=== PATIENT | female | born 1975 | race American Indian/Alaskan Native ===

== ENCOUNTER 2016-09-04 08:34 | Emergency (ER) | payer OTHER ==
[2016-09-04 08:39] VITALS: BMI 25.9
[2016-09-04 08:42] VITALS: BP 125/81; PULSE 85; RESP 19; TEMP 97.7
--- NOTE | 2016-09-04 09:31 | ED PDOC ---
HPI: Abdomen Time Seen by Provider: 09/04/16 09:09 Chief Complaint (Nursing): Abdominal Pain Chief Complaint (Provider): Abdominal Pain History Per: Patient History/Exam Limitations: no limitations Onset/Duration Of Symptoms: Days Current Symptoms Are (Timing): Still Present Severity: Mild Location Of Pain/Discomfort: Suprapubic Quality Of Discomfort: "Pain" Associated Symptoms: denies: Nausea, Vomiting, Diarrhea, Loss Of Appetite Exacerbating Factors: None Alleviating Factors: None Additional Complaint(s): Patient is a 41 year old female who presents to ED for right pelvic pain that began yesterday. Patient states pain was initially resolved with passing gas but noticed pain again upon waking this morning. Denies nausea, vomiting, diarrhea, fever or chills. Denies vaginal changes, vaginal discharge, vaginal bleeding, back pain or constipation . Abnormal Vaginal Bleeding: No Past Medical History Reviewed: Historical Data, Nursing Documentation, Vital Signs Vital Signs: Last Vital Signs Temp 97.7 F 09/04/16 08:39 Pulse 85 09/04/16 08:39 Resp 19 09/04/16 08:39 BP 125/81 09/04/16 08:39 Pulse Ox - Medical History PMH: Anxiety (pt states this does not feel like anxiety/panic) - Surgical History Surgical History: No Surg Hx - Family History Family History: States: No Known Family Hx, Unknown Family Hx - Living Arrangements Living Arrangements: With Family - Home Medications Home Medications: Ambulatory Orders Medication Instructions Recorded Naproxen [Naprosyn] 500 mg PO BID PRN #15 tablet 09/04/16 - Allergies Allergies/Adverse Reactions: Allergies Allergy/AdvReac Type Severity Reaction Status Date / Time No Known Allergies Allergy Verified 09/04/16 08:51 Review of Systems ROS Statement: Except As Marked, All Systems Reviewed And Found Negative Constitutional: Negative for: Fever, Chills Cardiovascular: Negative for: Chest Pain Respiratory: Negative for: Shortness of Breath Gastrointestinal: Negative for: Nausea, Vomiting, Abdominal Pain, Diarrhea Genitourinary Female: Positive for: Pelvic Pain. Negative for: Dysuria, Hematuria, Vaginal Discharge, Vaginal Bleeding Musculoskeletal: Negative for: Back Pain Physical Exam - Reviewed Nursing Documentation Reviewed: Yes Vital Signs Reviewed: Yes - Physical Exam Appears: Positive for: Non-toxic, No Acute Distress Skin: Positive for: Normal Color, Warm Eye Exam: Positive for: Normal appearance Neck: Positive for: Normal, Painless ROM Cardiovascular/Chest: Positive for: Regular Rate, Rhythm. Negative for: Murmur Respiratory: Positive for: Normal Breath Sounds. Negative for: Respiratory Distress Gastrointestinal/Abdominal: Positive for: Bowel Sounds, Soft, Tenderness (mild right lower suprapubic (-) mcburney point tenderness). Negative for: Distended , Guarding, Rebound Back: Positive for: Normal Inspection. Negative for: L CVA Tenderness, R CVA Tenderness Extremity: Positive for: Normal ROM Neurologic/Psych: Positive for: Alert, Oriented - Laboratory Results Result Diagrams: 09/04/16 10:08 09/04/16 10:08 - ECG Pulse Ox Interpretation: Normal - CT Scan/US Pelvic ultrasound Other Rad Studies (CT/US): Radiology Report Reviewed (Small amount of fluid seen adjacent to the left adnexa may be due to recent rupture of adnexal cyst. Otherwise grossly unremarkable ultrasound examination of the pelvis.) - Progress ED Course And Treament: On reexamination, pt without abdominal tenderness, feels better. Medical Decision Making Medical Decision Making: Time: 909 Initial impression: R/O ovarian pathology Initial plan: -- CMP -- Urine preg -- Urine dip -- CBC -- U/A -- U/S Scribe Attestation: Documented by Rosemary Villagomez acting as a scribe for Kenya Jaffe MD MD Scribe Attestation: All medical record entries made by the Scribe were at my direction and personally dictated by me. I have reviewed the chart and agree that the record accurately reflects my personal performance of the history, physical exam, medical decision making, and the department course for this patient. I have also personally directed, reviewed, and agree with the discharge instructions and disposition. Disposition - Clinical Impression Clinical Impression: Suprapubic pain - Patient ED Disposition Is Patient to be Admitted: No - Disposition Referrals: [facility] [Outside] Disposition: Routine/Home Disposition Time: 12:31 Condition: IMPROVED Prescriptions: Naproxen [Naprosyn] 500 mg PO BID PRN #15 tablet PRN Reason: Pain, Moderate (4-7) Instructions: Pelvic Pain in Women (ED) Forms: [facility] ED School/Work Excuse
[2016-09-04] MEDS: Sodium Chloride 0.9% 1,000 ML IV STA (09:57)
[2016-09-04 10:20] LABS: BASO % 0.5 % (0.0-2.0); EOS % 0.6 % (0.0-4.0); HEMATOCRIT 39.5 % (34.0-47.0); LYMPH # 2.6 K/uL (1.0-4.3); LYMPH % 38.9 % (20.0-40.0); MEAN CELL VOLUME 88.8 fl (81.0-99.0); MEAN CORPUSCULAR HEMOGLOBIN 28.7 pg (27.0-31.0); MEAN CORPUSCULAR HGB CONC 32.3 g/dL (33.0-37.0); MEAN PLATELET VOLUME 9.7 fl (7.2-11.7); MONO # 0.4 K/uL (0.0-0.8); MONO % 6.3 % (0.0-10.0); NEUT # 3.5 K/uL (1.8-7.0); NEUT % 53.7 % (50.0-75.0); NRBC % 0.1 % (0.0-0.0); RED CELL DISTRIBUTION WIDTH 13.3 % (11.5-14.5); WHITE BLOOD COUNT 6.6 K/uL (4.8-10.8)
[2016-09-04 10:21] LABS: ALB/GLOB RATIO 1.2 (1.0-2.1); ALKALINE PHOSPHATASE 60 U/L (38-126); ALT/SGPT 16 U/L (9-52); AST/SGOT 23 U/L (14-36); BILIRUBIN,TOTAL 0.8 mg/dl (0.2-1.3); BLOOD UREA NITROGEN 11 mg/dl (7-17); CALCIUM 9.4 mg/dL (8.4-10.2); CARBON DIOXIDE 19 mmol/L (22-30); CHLORIDE 108 mmol/L (98-107); GFR AFRICAN-AMERICAN > 60; GLUCOSE,RANDOM 76 mg/dL (65-105); POTASSIUM 4.1 MMOL/L (3.6-5.0); SODIUM 141 mmol/l (132-148); TOTAL PROTEIN 7.4 G/DL (6.3-8.2)
[2016-09-04 10:44] LABS: RBC URINE 13 /hpf (0-3); URINE BACTERIA RARE (<OCC); URINE BILIRUBIN NEGATIVE (NEGATIVE); URINE BLOOD SMALL (NEGATIVE); URINE COLOR YELLOW (YELLOW); URINE GLUCOSE (UA) NEG (Normal); URINE KETONE TRACE mg/dL (NEGATIVE); URINE LEUKOCYTE ESTERASE NEG Leu/uL (Negative); URINE PROTEIN NEGATIVE (NEGATIVE); URINE UROBILINOGEN 0.2-1.0 mg/dL (0.2-1.0); WBC URINE 1 /hpf (0-5)
--- NOTE | 2016-09-04 12:26 | US ---
HISTORY: R suprapubic pain COMPARISON: Comparison is made to the previous study dated 10/04/2009 TECHNIQUE: Transabdominal and endovaginal ultrasound examination of the pelvis was obtained. FINDINGS: UTERUS: Measures 8.5 x 5.5 x 4.4 cm. Normal in size and appearance. No fibroid or other mass lesion seen. ENDOMETRIUM: Measures 4.7 mm in diameter. Unremarkable. CERVIX: No cervical abnormality identified. RIGHT OVARY: Measures 3.2 x 3.1 x 1.5 cm. No solid mass. Normal flow. LEFT OVARY: Measures 3.5 x 2.9 x 1.7 cm. No solid mass. Normal flow. FREE FLUID: Small amount of fluid seen adjacent to the left adnexa. OTHER FINDINGS: None. IMPRESSION: Small amount of fluid seen adjacent to the left adnexa may be due to recent rupture of adnexal cyst. Otherwise grossly unremarkable ultrasound examination of the pelvis.
== END 2016-09-04 12:52 | disposition home or self-care (01) ==
LOC: H.ER 08:34
DX: R10.2 Pelvic and perineal pain (principal)

== ENCOUNTER 2017-04-21 15:54 | Emergency (ER) | payer OTHER ==
[2017-04-21 15:54] VITALS: BMI 25.9
[2017-04-21 16:02] VITALS: BP 139/96; PULSE 81; RESP 16; TEMP 96.5; O2SAT 100
--- NOTE | 2017-04-21 16:57 | ED PDOC ---
HPI: General Adult Time Seen by Provider: 04/21/17 16:13 Chief Complaint (Nursing): Flu-like Symptoms History Per: Patient Additional Complaint(s): Pt. states for the past 4-5 days she's had a cough intermittently productive of green sputum. Pt. has not used any medications to help relieve symptoms. Denies hemoptysis, fever, chest pain, SOB, sick contacts, recent travel. Past Medical History Reviewed: Historical Data, Nursing Documentation, Vital Signs Vital Signs: Last Vital Signs Temp 96.5 F L 04/21/17 15:59 Pulse 81 04/21/17 15:59 Resp 16 04/21/17 15:59 BP 139/96 H 04/21/17 15:59 Pulse Ox 100 04/21/17 15:59 - Medical History PMH: Anxiety (pt states this does not feel like anxiety/panic) - Family History Family History: States: No Known Family Hx - Home Medications Home Medications: Ambulatory Orders Medication Instructions Recorded Naproxen [Naprosyn] 500 mg PO BID PRN #15 tablet 09/04/16 Albuterol HFA [Ventolin HFA 90 2 puff IH [id number] PRN #60 puff 04/21/17 mcg/actuation (8 g)] Azithromycin [Zithromax] 250 mg PO DAILY #6 tab 04/21/17 Promethazine DM [Phenergan DM 5 - 10 ml PO Q8 PRN #120 ml 04/21/17 Syrup] - Allergies Allergies/Adverse Reactions: Allergies Allergy/AdvReac Type Severity Reaction Status Date / Time No Known Allergies Allergy Verified 09/04/16 08:51 Review of Systems ROS Statement: Except As Marked, All Systems Reviewed And Found Negative Respiratory: Positive for: Cough Physical Exam - Physical Exam Appears: Positive for: Well, Non-toxic, No Acute Distress Skin: Positive for: Normal Color, Warm. Negative for: Rash Eye Exam: Positive for: EOMI, Normal appearance, PERRL ENT: Positive for: Normal ENT Inspection Neck: Positive for: Normal, Painless ROM Cardiovascular/Chest: Positive for: Regular Rate, Rhythm Respiratory: Positive for: Normal Breath Sounds. Negative for: Accessory Muscle Use, Crackles, Rales, Rhonchi, Wheezing, Respiratory Distress Gastrointestinal/Abdominal: Positive for: Normal Exam, Soft. Negative for: Tenderness Back: Positive for: Normal Inspection Extremity: Positive for: Normal ROM Neurologic/Psych: Positive for: Alert, Oriented - ECG O2 Sat by Pulse Oximetry: 100 Disposition - Clinical Impression Clinical Impression: Acute bronchitis - Patient ED Disposition Is Patient to be Admitted: No - Disposition Referrals: [facility] [Outside] Disposition: Routine/Home Disposition Time: 16:35 Condition: STABLE Prescriptions: Albuterol HFA [Ventolin HFA 90 mcg/actuation (8 g)] 2 puff IH [id number] PRN #60 puff PRN Reason: Cough Azithromycin [Zithromax] 250 mg PO DAILY #6 tab Promethazine DM [Phenergan DM Syrup] 5 - 10 ml PO Q8 PRN #120 ml PRN Reason: Cough Instructions: Acute Bronchitis (ED) Forms: [facility] (Wolof), [facility] ED School/Work Excuse
== END 2017-04-21 16:55 | disposition home or self-care (01) ==
LOC: H.ER 15:54
DX: J20.9 Acute bronchitis, unspecified (principal); F41.9 Anxiety disorder, unspecified

== ENCOUNTER 2017-07-03 10:02 | Emergency (ER) | payer OTHER ==
[2017-07-03 10:12] VITALS: BMI 25.0
[2017-07-03 10:13] VITALS: BP 134/81; PULSE 92; RESP 16; TEMP 97.7; O2SAT 100
--- NOTE | 2017-07-03 10:40 | ED PDOC ---
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 PT states when she woke up it was crusty. Pt reports tichiness. Pt does not wear contact. Past Medical History Reviewed: Historical Data, Nursing Documentation, Vital Signs Vital Signs: Last Vital Signs Temp 97.7 F 07/03/17 10:12 Pulse 92 H 07/03/17 10:12 Resp 16 07/03/17 10:12 BP 134/81 07/03/17 10:12 Pulse Ox 100 07/03/17 10:12 - Medical History PMH: Anxiety (pt states this does not feel like anxiety/panic) - Surgical History Surgical History: No Surg Hx - Family History Family History: States: Unknown Family Hx - Home Medications Home Medications: Ambulatory Orders Medication Instructions Recorded Naproxen [Naprosyn] 500 mg PO BID PRN #15 tablet 09/04/16 Albuterol HFA [Ventolin HFA 90 2 puff IH [id number] PRN #60 puff 04/21/17 mcg/actuation (8 g)] Azithromycin [Zithromax] 250 mg PO DAILY #6 tab 04/21/17 Promethazine DM [Phenergan DM 5 - 10 ml PO Q8 PRN #120 ml 04/21/17 Syrup] Polymyxin/Trimethoprim Sulfate 1 drop XX Q6H 10 Days bottle 07/03/17 [Polytrim Ophth Soln] - Allergies Allergies/Adverse Reactions: Allergies Allergy/AdvReac Type Severity Reaction Status Date / Time No Known Allergies Allergy Verified 09/04/16 08:51 Review of Systems ROS Statement: Except As Marked, All Systems Reviewed And Found Negative Constitutional: Negative for: Fever, Chills Eyes: Positive for: Conjunctivae Inflammation, Redness ENT: Negative for: Throat Pain, Throat Swelling Physical Exam - Reviewed Nursing Documentation Reviewed: Yes Vital Signs Reviewed: Yes - Physical Exam Appears: Positive for: Well, Non-toxic, No Acute Distress Head Exam: Positive for: ATRAUMATIC, NORMAL INSPECTION, NORMOCEPHALIC Skin: Positive for: Normal Color, Warm, DRY Eye Exam: Positive for: EOMI, PERRL, Conjunctival injection, Other (Clear/white drainage in corner of left eye ). Negative for: Normal appearance ENT: Positive for: Normal ENT Inspection Neck: Positive for: Normal, Painless ROM Respiratory: Negative for: Accessory Muscle Use, Respiratory Distress Back: Positive for: Normal Inspection Extremity: Positive for: Normal ROM Neurologic/Psych: Positive for: Alert, Oriented - ECG O2 Sat by Pulse Oximetry: 100 Disposition - Clinical Impression Clinical Impression: Conjunctivitis - Patient ED Disposition Is Patient to be Admitted: No Counseled Patient/Family Regarding: Diagnosis, Need For Followup, Rx Given - Disposition Referrals: Ata Dave MD [Staff Provider] - Disposition: Routine/Home Disposition Time: 10:38 Condition: GOOD Prescriptions: Polymyxin/Trimethoprim Sulfate [Polytrim Ophth Soln] 1 drop XX Q6H 10 Days bottle Instructions: Conjunctivitis (ED) Forms: [facility] (Andorran), [facility] ED School/Work Excuse
== END 2017-07-03 10:50 | disposition home or self-care (01) ==
LOC: H.ER 10:02
DX: H10.9 Unspecified conjunctivitis (principal); F41.9 Anxiety disorder, unspecified

== ENCOUNTER 2018-03-02 09:50 | Emergency (ER) | payer OTHER ==
[2018-03-02 10:02] VITALS: BMI 25.4
--- NOTE | 2018-03-02 11:07 | RAD ---
Date of service: 03/02/2018 HISTORY: possible admission COMPARISON: Chest radiograph dated 02/23/2014 FINDINGS: LUNGS: No active pulmonary disease. PLEURA: No significant pleural effusion identified, no pneumothorax apparent. CARDIOVASCULAR: Normal. OSSEOUS STRUCTURES: No significant abnormalities. VISUALIZED UPPER ABDOMEN: Normal. OTHER FINDINGS: None. IMPRESSION: No active disease.
--- NOTE | 2018-03-02 12:30 | ED PDOC ---
HPI: CCC, URI, Sore Throat Time Seen by Provider: 03/02/18 10:25 Chief Complaint (Nursing): Cough, Cold, Congestion Chief Complaint (Provider): Cough, Sneeze, Headache History Per: Patient History/Exam Limitations: no limitations Onset/Duration Of Symptoms: Days (x4) Current Symptoms Are (Timing): Still Present Additional Complaint(s): 42 year old female, with no significant past medical history, presenting for medical clearance due to coughing. Patient states that her symptoms include coughing, sneezing, and generalized head pain since friday. Patient states her k ids recently started school and have similar symptoms, so she was not very concerned, but requires medical clearance before she can return to work, so she presented to the ER. Patient denies taking any medication including Tylenol or cold medication. Patient otherwise denies any recent illness or recent travel. PMD: Dr. De La Fuente Past Medical History Reviewed: Historical Data, Nursing Documentation, Vital Signs Vital Signs: Last Vital Signs Temp 98.1 F 03/02/18 10:01 Pulse 78 03/02/18 10:01 Resp 17 03/02/18 10:01 BP 123/86 03/02/18 10:01 Pulse Ox 98 03/02/18 12:39 - Medical History PMH: Anxiety (pt states this does not feel like anxiety/panic) - Surgical History Surgical History: No Surg Hx - Family History Family History: States: Unknown Family Hx - Home Medications Home Medications: Ambulatory Orders Medication Instructions Recorded Naproxen [Naprosyn] 500 mg PO BID PRN #15 tablet 09/04/16 Albuterol HFA [Ventolin HFA 90 2 puff IH [id number] PRN #60 puff 04/21/17 mcg/actuation (8 g)] Azithromycin [Zithromax] 250 mg PO DAILY #6 tab 04/21/17 Promethazine DM [Phenergan DM 5 - 10 ml PO Q8 PRN #120 ml 04/21/17 Syrup] Polymyxin/Trimethoprim Sulfate 1 drop XX Q6H 10 Days bottle 07/03/17 [Polytrim Ophth Soln] - Allergies Allergies/Adverse Reactions: Allergies Allergy/AdvReac Type Severity Reaction Status Date / Time No Known Allergies Allergy Verified 03/02/18 10:25 Review of Systems ROS Statement: Except As Marked, All Systems Reviewed And Found Negative ENT: Positive for: Other (sneezing) Respiratory: Positive for: Cough Neurological: Positive for: Headache Physical Exam - Reviewed Nursing Documentation Reviewed: Yes Vital Signs Reviewed: Yes - Physical Exam Appears: Positive for: Non-toxic, No Acute Distress Head Exam: Positive for: ATRAUMATIC, NORMAL INSPECTION, NORMOCEPHALIC Skin: Positive for: Normal Color, Warm, Dry. Negative for: Rash Eye Exam: Positive for: EOMI, Normal appearance, PERRL ENT: Positive for: Normal ENT Inspection Neck: Positive for: Normal, Painless ROM, Supple Cardiovascular/Chest: Positive for: Regular Rate, Rhythm. Negative for: Murmur Respiratory: Positive for: Normal Breath Sounds, Other (Patient is coughing). Negative for: Respiratory Distress Gastrointestinal/Abdominal: Positive for: Normal Exam, Soft. Negative for: Tenderness Back: Positive for: Normal Inspection. Negative for: L CVA Tenderness, R CVA Tenderness, Vertebral Tenderness Extremity: Positive for: Normal ROM. Negative for: Pedal Edema, Deformity Neurologic/Psych: Positive for: Alert, Oriented. Negative for: Motor/Sensory Deficits - ECG O2 Sat by Pulse Oximetry: 98 (RA) Pulse Ox Interpretation: Normal Medical Decision Making Medical Decision Makin Plan: Most likely viral URI. CXR and flu swab ordered to rule out other pathologies. Patient treated with Motrin 800mg PO. Will reassess. 1222: Chest x-ray shows no acute abnormalities and flu swab negative. Discussed viral illnesses with patient who understands symptoms will take time to resolve. Patient will take OTC medications for symptom management and advised to return to ER for new or worsening symptoms such as cough, difficulty breathing, or other symptoms. Patient advised to follow up with PMD as needed. Vitals WNL. Patient discharged with work note. Scribe Attestation: Documented by Zane Trujillo, acting as a scribe for Herlinda Grady MD. Provider Scribe Attestation: All medical record entries made by the Rayne were at my direction and personally dictated by me. I have reviewed the chart and agree that the record accurately reflects my personal performance of the history, physical exam, medical decision making, and the department course for this patient. I have also personally directed, reviewed, and agree with the discharge instructions and disposition. Disposition - Clinical Impression Clinical Impression: Cough, Common cold - Patient ED Disposition Is Patient to be Admitted: No Counseled Patient/Family Regarding: Studies Performed, Diagnosis, Need For Followup - Disposition Disposition: Routine/Home Disposition Time: 12:22 Condition: IMPROVED Additional Instructions: Take over the counter medications for cough, fever, and body aches. Becareful to not take multiple products that contain Acetaminophen (Tylenol) as you can overdose. Follow up with primary medical doctor. Increase rest and water intake while symptoms last. Forms: [facility] (Russian), [facility] ED School/Work Excuse Print Language: GEORGIAN
[2018-03-02 12:42] VITALS: BP 121/79; PULSE 71; RESP 16; TEMP 98.4; O2SAT 100
== END 2018-03-02 12:41 | disposition home or self-care (01) ==
LOC: H.ER 09:50
DX: R05 Cough (principal); J00 Acute nasopharyngitis [common cold]

== ENCOUNTER 2018-07-20 11:36 | Emergency (ER) | payer OTHER ==
[2018-07-20 11:36] VITALS: BMI 25.4
[2018-07-20 11:42] VITALS: RESP 18; TEMP 97.5
--- NOTE | 2018-07-20 12:44 | ED PDOC ---
History of Present Illness History of Present Illness: 43yo female, with no significant past medical history, who presents to the emergency department c/o body aches, fever, sore throat and congestion since Friday. Patient denies focal neck pain, fever, photophobia, syncope, seizure, abdominal pain or vomiting/diarrhea. No sick contacts. No flu vaccine this year. No further medical complaints. PMD: Gen De La Fuente HPI: Influenza Time Seen by Provider: 07/20/18 12:25 Chief Complaint: Flu-like Symptoms Chief Complaint (Provider): flu like symptoms History Per: Patient Exam Limitations: no limitations Symptoms include: headache, bodyaches, sore throat, cough, nasal congestion. denies: fever, vomiting, diarrhea, syncope, chest pain, difficulty breathing, seizure, rash, blurry vision Hx Influenza Vaccination: No Risk factors for flu complications: Yes: Other (smoking). No: adult > 65 years, (menses now denies poss being ), renal disease, metabolic disease, hematologic disease, immunosuppression, obesity (BMI > 40), snf resident, <19 years of age on [employer] ASA therapy, neurologic disease, or Past Medical History Reviewed: Historical Data, Nursing Documentation, Vital Signs Vital Signs: Last Vital Signs Temp 97.5 F L 07/20/18 11:41 Pulse 70 07/20/18 11:41 Resp 18 07/20/18 11:41 BP 133/81 07/20/18 11:41 Pulse Ox 99 07/20/18 11:41 - Medical History PMH: Anxiety (pt states this does not feel like anxiety/panic) - Surgical History Surgical History: No Surg Hx - Family History Family History: States: Unknown Family Hx - Social History Current smoker - smoking cessation education provided: Yes - Home Medications Home Medications: Ambulatory Orders Medication Instructions Recorded Naproxen [Naprosyn] 500 mg PO BID PRN #15 tablet 09/04/16 Albuterol HFA [Ventolin HFA 90 2 puff IH [id number] PRN #60 puff 04/21/17 mcg/actuation (8 g)] Azithromycin [Zithromax] 250 mg PO DAILY #6 tab 04/21/17 Promethazine DM [Phenergan DM 5 - 10 ml PO Q8 PRN #120 ml 04/21/17 Syrup] Polymyxin/Trimethoprim Sulfate 1 drop XX Q6H 10 Days bottle 07/03/17 [Polytrim Ophth Soln] Ibuprofen [Motrin Tab] 600 mg PO Q6 PRN #15 tab 07/20/18 Oseltamivir Cap [Tamiflu] 75 mg PO BID #10 cap 07/20/18 - Allergies Allergies/Adverse Reactions: Allergies Allergy/AdvReac Type Severity Reaction Status Date / Time No Known Allergies Allergy Verified 07/20/18 12:04 Review of Systems Constitutional: Positive for: Chills, Weakness (fatigue), Malaise Eyes: Negative for: Eyelid Inflammation ENT: Positive for: Nose Congestion, Throat Pain. Negative for: Ear Pain, Ear Discharge, Throat Swelling Cardiovascular: Negative for: Chest Pain, Palpitations Respiratory: Positive for: Cough. Negative for: Shortness of Breath Gastrointestinal: Negative for: Nausea, Vomiting, Abdominal Pain, Diarrhea Genitourinary Female: Negative for: Dysuria Musculoskeletal: Negative for: Neck Pain Skin: Negative for: Rash, Lesions, Jaundice Neurological: Positive for: Headache. Negative for: Weakness, Numbness, Confusion, Seizures, Altered Mental Status Physical Exam - Reviewed Nursing Documentation Reviewed: Yes Vital Signs Reviewed: Yes - Physical Exam Appears: Positive for: Well, Non-toxic, No Acute Distress Head Exam: Positive for: ATRAUMATIC, NORMAL INSPECTION, NORMOCEPHALIC Skin: Positive for: Normal Color, Warm, DRY Eye Exam: Positive for: EOMI, Normal appearance, PERRL ENT: Positive for: Normal ENT Inspection. Negative for: Pharyngeal Erythema, Tonsillar Exudate, Tonsillar Swelling Neck: Positive for: Normal, Painless ROM Cardiovascular/Chest: Positive for: Regular Rate, Rhythm. Negative for: Murmur Respiratory: Positive for: Normal Breath Sounds (clear to auscultation). Negative for: Respiratory Distress Gastrointestinal/Abdominal: Positive for: Normal Exam, Soft. Negative for: Tenderness Back: Positive for: Normal Inspection Extremity: Positive for: Normal ROM (upper and lower extremities). Negative for: Deformity Neurologic/Psych: Positive for: Alert, Oriented Medical Decision Making Medical Decision Making: Time: 12:25 Initial Impression: given smoker offer empiric treatment w tamiflu, Rx motrin, followup PMD, indications for return ED discussed Initial Plan: --Motrin tab 600 mg PO --Tamiflu 75 mg PO --Reevaluation 13:10 Upon provider evaluation patient is medically stable, and requires no further treatment in the ED at this time. Patient will be discharged home. Counseling was provided and all questions were answered regarding diagnosis and need for follow up with PMD. There is agreement to discharge plan. Return if symptoms persist or worsen. Scribe Attestation: Documented by Miguelangel García, acting as a scribe for Brad Arambula MD Provider Scribe Attestation: All medical record entries made by the Scribe were at my direction and personally dictated by me. I have reviewed the chart and agree that the record accurately reflects my personal performance of the history, physical exam, medical decision making, and the department course for this patient. I have also personally directed, reviewed, and agree with the discharge instructions and disposition. - ECG O2 Sat by Pulse Oximetry: 99 (RA) Pulse Ox Interpretation: Normal Disposition - Clinical Impression Clinical Impression: Influenza-like symptoms - Disposition Referrals: Gen De La Fuente DO [[facility]] - Disposition: Routine/Home Disposition Time: 13:10 Condition: STABLE Additional Instructions: Drink plenty of fluids, avoid close contact with others, wash hands frequently, take medications as directed. Prescriptions: Ibuprofen [Motrin Tab] 600 mg PO Q6 PRN #15 tab PRN Reason: Pain, Moderate (4-7) Oseltamivir Cap [Tamiflu] 75 mg PO BID #10 cap Instructions: Flu, Adult (DC) Forms: [employer] (Tanzanian), [facility] ED School/Work Excuse
[2018-07-20 13:52] VITALS: BP 130/76; PULSE 72; O2SAT 100
== END 2018-07-20 13:03 | disposition home or self-care (01) ==
LOC: H.ER 11:36
DX: J11.1 Influenza due to unidentified influenza virus with other respiratory manifestations (principal)

== ENCOUNTER 2018-08-13 11:52 | Emergency (ER) | payer OTHER ==
[2018-08-13 11:52] VITALS: BMI 25.4
[2018-08-13 12:25] VITALS: BP 136/84; PULSE 67; RESP 18; TEMP 98.6; O2SAT 100
--- NOTE | 2018-08-13 12:50 | ED PDOC ---
HPI: Influenza Time Seen by Provider: 08/13/18 12:45 Chief Complaint: Cough, Cold, Congestion Chief Complaint (Provider): Flu-like Symptoms History Per: Patient Exam Limitations: no limitations Onset/Duration Of Symptoms: Days (this morning) Additional complaint(s):: 43 year old female presents to the ED for evaluation of flu-like symptoms including chills, cough, sore throat, and sneezing since waking up this morning. Of note, patient states that about three weeks ago she was diagnosed with the flu and given script for Tamiflu and Ibuprofen, and feels as if these symptoms now are similar. Otherwise, denies body aches, fever, ear pain, and sick contacts. PMD: none provided Past Medical History Reviewed: Historical Data, Nursing Documentation, Vital Signs Vital Signs: Last Vital Signs Temp 98.6 F 08/13/18 12:24 Pulse 67 08/13/18 12:24 Resp 18 08/13/18 12:24 BP 136/84 08/13/18 12:24 Pulse Ox 100 08/13/18 12:24 - Medical History PMH: Anxiety (pt states this does not feel like anxiety/panic) - Family History Family History: States: Unknown Family Hx - Social History Current smoker - smoking cessation education provided: Yes (light) Alcohol: Social Drugs: Denies - Immunization History Hx Influenza Vaccination: No - Home Medications Home Medications: Ambulatory Orders Medication Instructions Recorded Naproxen [Naprosyn] 500 mg PO BID PRN #15 tablet 09/04/16 Albuterol HFA [Ventolin HFA 90 2 puff IH [id number] PRN #60 puff 04/21/17 mcg/actuation (8 g)] Azithromycin [Zithromax] 250 mg PO DAILY #6 tab 04/21/17 Promethazine DM [Phenergan DM 5 - 10 ml PO Q8 PRN #120 ml 04/21/17 Syrup] Polymyxin/Trimethoprim Sulfate 1 drop XX Q6H 10 Days bottle 07/03/17 [Polytrim Ophth Soln] Ibuprofen [Motrin Tab] 600 mg PO Q6 PRN #15 tab 07/20/18 Oseltamivir Cap [Tamiflu] 75 mg PO BID #10 cap 07/20/18 - Allergies Allergies/Adverse Reactions: Allergies Allergy/AdvReac Type Severity Reaction Status Date / Time No Known Allergies Allergy Verified 08/13/18 12:24 Review of Systems ROS Statement: Except As Marked, All Systems Reviewed And Found Negative Constitutional: Positive for: Chills. Negative for: Fever, Other (body aches) ENT: Positive for: Throat Pain, Other (sneezing). Negative for: Ear Pain Respiratory: Positive for: Cough Physical Exam - Reviewed Nursing Documentation Reviewed: Yes Vital Signs Reviewed: Yes - Physical Exam Appears: Positive for: No Acute Distress ENT: Positive for: Pharyngeal Erythema (with nasal drainage visible). Negative for: Tonsillar Exudate, Tonsillar Swelling (tonsils at 0/0) Cardiovascular/Chest: Positive for: Regular Rate, Rhythm Respiratory: Positive for: Normal Breath Sounds. Negative for: Accessory Muscle Use, Respiratory Distress Medical Decision Making Medical Decision Making: Time: 1249 Initial Impression: flu-like symptoms Initial Plan: --Influenza A B swab --Rapid strep --Throat culture 1338 Flu and strep negative. Patient advised to use supportive care such as Dayquil / Nyquil, increase fluids, and get plenty of rest. Instructed to follow up with her PMD in 3-4 days. Patient verbalized agreement and understanding of plan, stable for discharge. Scribe Attestation: Documented by Lucita Scott, acting as a scribe for Rainer Stephens PA-C. Provider Scribe Attestation: All medical record entries made by the Scribe were at my direction and personally dictated by me. I have reviewed the chart and agree that the record accurately reflects my personal performance of the history, physical exam, medical decision making, and the department course for this patient. I have also personally directed, reviewed, and agree with the discharge instructions and disposition. - ECG O2 Sat by Pulse Oximetry: 100 (RA) Pulse Ox Interpretation: Normal Disposition - Clinical Impression Clinical Impression: Common cold - Disposition Referrals: George Mayberry MD [Medical Doctor] - Disposition Time: 13:40 Condition: STABLE Additional Instructions: Supportive care discussed include Dayquil, Nyquil, Fluids, Rest and Chicken Soup Follow up with PMD in 4-5 days Instructions: Cough, Runny Nose, and the Common Cold (DC), Cough, Runny Nose, and the Common Cold Forms: [facility] ([place]), [facility] School/Work Excuse
== END 2018-08-13 13:45 | disposition home or self-care (01) ==
LOC: H.ER 11:52
DX: J00 Acute nasopharyngitis [common cold] (principal)